=== PATIENT | male | born 1950 | race Caucasian/White ===

== ENCOUNTER 2023-10-16 22:20 | Emergency (ER) | payer OTHER ==
[~2023-10-16] VITALS: Ht 177.8 cm; Wt 74.8 kg
[~2023-10-16 22:20] MED LIST: ALBU2.5V5 INH; Ativan1 MG SL; CEPH500 PO; CHLO25 PO; CYCL10 PO; FAMO40 PO; FLUT1DIS5 INH; HCTZ; HYDACE5 PO; HYDPAM25 PO; IBUP600 PO; Kenalog60 ML TOP; MAGN84 PO; METH5 PO; METHADONE; MULVITMIND PO; OMEP20ER PO; OXYACE5T PO; PRAM.125 PO; PRILOSEC OTC; PROM25 PO; PROMETHAZINE; Prilosec Otc20 MG; Prilosec Otc20 MG PO; ROPI2 PO; RXCYCL10 PO; RXHYDACE PO; TAMS.4ER PO; TRAM50 PO; TRAZ100 PO; Ultram50 MG PO; WIXELA 250-501 EAC1 INH; Zofran Odt4 MG SL
[2023-10-16] MEDS ORDERED: Lidocaine 2% Jelly Uro-Jet UR ONE (22:25)
[2023-10-16 22:33] VITALS: BP 169/104
[2023-10-16 22:54] LABS: Source, Urine Foley catheter
[2023-10-16 22:58] LABS: Bilirubin, Urine Neg (Neg); Blood, Urine 5+ (Neg); Glucose Qualitative, Urine Neg (Neg); Ketones, Urine Neg (Neg); Leukocyte Esterase, Urine 3+ (Neg); Nitrite, Urine Pos (Neg); Protein, Urine 2+ (Neg); Urobilinogen, Urine NORM (Normal)
[2023-10-16 23:05] LABS: Appearance, Urine Cloudy (Clear); Color, Urine Yellow (P-Yellow)
[2023-10-16 23:06] LABS: Bacteria Mod /hpf; Red Blood Cells, Urine 50-100 /hpf (0-2); Squamous Epithelial Cells Not Seen /hpf (Few); White Blood Cells, Urine TNTC /hpf (0-5)
== END 2023-10-16 23:02 | disposition home or self-care (01) ==
LOC: ER 22:20
PROVIDERS: Emergency Medicine
DX: N47.1 Phimosis (principal); R33.9 Retention of urine, unspecified; J44.9 Chronic obstructive pulmonary disease, unspecified; K21.9 Gastro-esophageal reflux disease without esophagitis; Z87.891 Personal history of nicotine dependence; Z79.51 Long term (current) use of inhaled steroids; Z79.899 Other long term (current) drug therapy; Z88.0 Allergy status to penicillin; Z88.8 Allergy status to other drugs, medicaments and biological substances
CPT/HCPCS: 51702; 81001; 87077; 87086; 87186; 99283-25

== ENCOUNTER 2024-04-19 08:38 | Emergency (ER) | payer OTHER ==
[~2024-04-19] VITALS: Ht 170.2 cm; Wt 79.4 kg
[2024-04-19 10:56] LABS: Source, Urine Foley catheter
[2024-04-19 11:08] LABS: Appearance, Urine Turbid (Clear); Blood, Urine 5+ (Neg); Color, Urine Amber (P-Yellow); Glucose Qualitative, Urine Neg (Neg); Ketones, Urine Neg (Neg); Leukocyte Esterase, Urine 3+ (Neg); Nitrite, Urine Pos (Neg); Protein, Urine 3+ (Neg); Urobilinogen, Urine 3+ (Normal)
[2024-04-19 11:21] LABS: Bilirubin, Urine 3+ (Neg)
[2024-04-19] MEDS ORDERED: CEFP200 PO (11:26)
[2024-04-19 11:27] LABS: Bacteria Many /hpf
[2024-04-19 11:28] LABS: Red Blood Cells, Urine 50-100 /hpf (0-2); Squamous Epithelial Cells Rare /hpf (Few); Transitional Epithelial Cells Rare /hpf (0-Rare)
[2024-04-19] MEDS ORDERED: CefTRIAXone 1000 MG Vial IM ONE (11:30)
[2024-04-19 11:50] VITALS: BP 139/70
[2024-04-23] MEDS ORDERED: MACRODANTIN100 M1 PO (09:56)
== END 2024-04-19 12:00 | disposition home or self-care (01) ==
LOC: ER 08:38
PROVIDERS: Student in an Organized Health Care Education/Training Program
DX: T83.511A Infection and inflammatory reaction due to indwelling urethral catheter, initial encounter (principal); J44.9 Chronic obstructive pulmonary disease, unspecified; K21.9 Gastro-esophageal reflux disease without esophagitis; Z87.891 Personal history of nicotine dependence; Z88.8 Allergy status to other drugs, medicaments and biological substances; Z88.0 Allergy status to penicillin; Z79.51 Long term (current) use of inhaled steroids; Z79.2 Long term (current) use of antibiotics; Z79.899 Other long term (current) drug therapy; Z79.52 Long term (current) use of systemic steroids
CPT/HCPCS: 51702; 81001; 87077; 87086; 87186; 96372; 99283-25; J0696

== ENCOUNTER 2024-05-23 07:22 | Emergency (ER) | payer OTHER ==
[~2024-05-23] VITALS: Ht 177.8 cm; Wt 90.7 kg
[~2024-05-23 07:22] MED LIST changes: +CEFP200 PO; +MACRODANTIN100 M1 PO
[2024-05-23] MEDS ORDERED: Morphine Sulfate 4 MG/1 ML Injection IV ONE (07:30)
[2024-05-23] MEDS ORDERED: Lidocaine 2% Jelly Uro-Jet UR ONE (07:30)
[2024-05-23 07:47] LABS: BASOPHILS ABSOLUTE AUTO 0.07 K/mm3 (0.00-0.23); BASOPHILS PERCENT AUTO 1 % (0-2); EOSINOPHILS ABSOLUTE AUTO 0.15 K/mm3 (0.00-0.68); EOSINOPHILS PERCENT AUTO 2 % (0-6); Hematocrit 42.2 % (37.0-53.0); Hemoglobin 14.2 g/dL (13.5-17.5); IMMATURE GRAN ABSOLUTE AUTO 0.03 K/mm3 (0.00-0.10); IMMATURE GRAN PERCENT AUTO 0 % (0-1); LYMPHOCYTES ABSOLUTE AUTO 1.53 K/mm3 (0.84-5.20); LYMPHOCYTES PERCENT AUTO 16 % (21-46); MONOCYTES ABSOLUTE AUTO 0.74 K/mm3 (0.16-1.47); MONOCYTES PERCENT AUTO 8 % (4-13); Mean Corpuscular HGB 30.7 pg (26.0-34.0); Mean Corpuscular HGB Conc 33.6 g/dL (31.5-36.5); Mean Corpuscular Volume 91 fL (80-100); Mean Platelet Volume 8.9 fL (9.1-12.4); NEUTROPHILS ABSOLUTE AUTO 7.38 K/mm3 (1.96-9.15); NEUTROPHILS PERCENT AUTO 75 % (41-73); Platelet Count 319 K/mm3 (150-400); RDW Coefficient Variation 12.9 % (11.7-14.2); RDW Standard Deviation 42.5 fL (35.1-46.3); Red Blood Cell Count 4.62 M/mm3 (4.30-5.90)
[2024-05-23 08:05] LABS: Source, Urine Foley catheter
[2024-05-23 08:08] LABS: Appearance, Urine Turbid (Clear); Blood, Urine 5+ (Neg); Glucose Qualitative, Urine Neg (Neg); Ketones, Urine Neg (Neg); Leukocyte Esterase, Urine 3+ (Neg); Nitrite, Urine Pos (Neg); Protein, Urine 3+ (Neg); Specific Gravity, Urine 1.015 (1.003-1.022); Urobilinogen, Urine 4+ (Normal)
[2024-05-23 08:08] LABS: Albumin, Blood 3.7 g/dL (3.4-5.0); Albumin/Globulin Ratio 0.8 (0.8-1.8); Bilirubin, Total 0.9 mg/dL (0.1-1.0); Creatinine, Blood 0.85 mg/dL (0.60-1.20); Globulin, Blood 4.4 g/dL (2.2-4.0); Potassium, Blood 4.1 mmol/L (3.5-5.5); Total Protein, Blood 8.1 g/dL (6.4-8.2)
[2024-05-23 08:10] LABS: Bilirubin, Urine 3+ (Neg); Color, Urine Orange (P-Yellow)
[2024-05-23 08:13] LABS: Triple Phosphate Crystals Mod /hpf
[2024-05-23 08:14] LABS: Bacteria Many /hpf; Red Blood Cells, Urine 50-100 /hpf (0-2); Squamous Epithelial Cells Not Seen /hpf (Few); White Blood Cells, Urine 50-100 /hpf (0-5)
[2024-05-23] MEDS ORDERED: CefTRIAXone Sodium 1,000 MG in NS 100 ML IV ONE (08:25)
[2024-05-23] MEDS ORDERED: NS 1,000 ML IV SCH (08:25)
[2024-05-23] MEDS ORDERED: CIPR500 PO (09:43)
[2024-05-23 09:45] VITALS: BP 130/77
[2024-05-23] MEDS ORDERED: HYDR1TAB94 PO (09:54)
== END 2024-05-23 10:23 | disposition home or self-care (01) ==
LOC: ER 07:22
PROVIDERS: Emergency Medicine
DX: T83.091A Other mechanical complication of indwelling urethral catheter, initial encounter (principal); N39.0 Urinary tract infection, site not specified; J44.9 Chronic obstructive pulmonary disease, unspecified; K21.9 Gastro-esophageal reflux disease without esophagitis; G25.81 Restless legs syndrome; Z87.891 Personal history of nicotine dependence; Z88.0 Allergy status to penicillin; Z88.8 Allergy status to other drugs, medicaments and biological substances; Z79.51 Long term (current) use of inhaled steroids; Z79.899 Other long term (current) drug therapy
CPT/HCPCS: 51702; 80053; 81001; 83605; 85025; 87077; 87086; 87186; 96365-59; 96375-59; 99283-25; J0696; J2270; J7030